=== PATIENT | male | born 1960 | race Caucasian/White ===

== ENCOUNTER → 2016-12-09 | Outpatient (CLI) | payer BC ==
[2016-12-09 13:40] LABS: ALT/SGPT 31 U/L (12-78); AST/SGOT 14 U/L (15-37); BLOOD UREA NITROGEN 22 mg/dl (7-18); BUN/CREATININE RATIO 20.2 (10-20); CALCIUM 8.6 mg/dl (8.5-10.1); CARBON DIOXIDE 29 mmol/L (21-32); CHLORIDE 104 mmol/L (98-107); GLUCOSE 121 mg/dl (70-99); POTASSIUM 4.3 mmol/L (3.5-5.1); SODIUM 140 mmol/L (136-145)
[2016-12-09 13:43] LABS: CHOLESTEROL 153 mg/dl (0-200); CHOLESTEROL/HDL RATIO 2.7; HDL CHOLESTEROL 57 mg/dl; LDL CHOLESTEROL CALCULATED 82 mg/dl; TRIGLYCERIDES 71 mg/dl (0-150); VERY LOW DENSITY LIPOPROT CALC 14 mg/dl
[2016-12-09 14:04] LABS: ESTIMATED AVERAGE GLUCOSE 143 mg/dl; HA1C FLAG Normal (Normal)
== END | disposition home or self-care (01) ==
LOC: C.LABMFLN 07:26
PROVIDERS: ATTEND Family Medicine
DX: E11.9 Type 2 diabetes mellitus without complications (principal); E78.00 Pure hypercholesterolemia, unspecified; E55.9 Vitamin D deficiency, unspecified; E83.51 Hypocalcemia

== ENCOUNTER → 2017-06-16 | Outpatient (CLI) | payer BC ==
[2017-06-16 13:50] LABS: ESTIMATED AVERAGE GLUCOSE 134 mg/dl; HA1C FLAG Normal (Normal)
[2017-06-16 14:24] LABS: RATIO 18.4 mcg/mg (0-30.0)
[2017-06-16 14:40] LABS: ALT/SGPT 32 U/L (12-78); AST/SGOT 23 U/L (15-37); BLOOD UREA NITROGEN 18 mg/dl (7-18); BUN/CREATININE RATIO 18.3 (10-20); CALCIUM 8.8 mg/dl (8.5-10.1); CARBON DIOXIDE 24 mmol/L (21-32); CHLORIDE 105 mmol/L (98-107); CHOLESTEROL 123 mg/dl (0-200); CREATININE 0.99 mg/dl (0.60-1.40); GLUCOSE 122 mg/dl (70-99); POTASSIUM 4.1 mmol/L (3.5-5.1); SODIUM 137 mmol/L (136-145); TRIGLYCERIDES 63 mg/dl (0-150); VERY LOW DENSITY LIPOPROT CALC 13 mg/dl
[2017-06-16 14:44] LABS: ALB/GLOB RATIO 1.2 (0.9-2); ALKALINE PHOSPHATASE 81 U/L (45-117); CHOLESTEROL/HDL RATIO 2.6; HDL CHOLESTEROL 47 mg/dl; LDL CHOLESTEROL CALCULATED 63 mg/dl
== END | disposition home or self-care (01) ==
LOC: C.LABMFLN 06:55
PROVIDERS: ATTEND Family Medicine
DX: E11.9 Type 2 diabetes mellitus without complications (principal); E78.00 Pure hypercholesterolemia, unspecified; Z12.5 Encounter for screening for malignant neoplasm of prostate; E55.9 Vitamin D deficiency, unspecified; E83.51 Hypocalcemia

== ENCOUNTER → 2017-07-15 | Outpatient (CLI) | payer BC ==
--- NOTE | 2017-07-15 10:39 | DIAGNOSTIC IMAGING REPORT ---
CT LUNG SCREENING, LOW DOSE WITH COMPUTER-AIDED DETECTION (CAD) CLINICAL HISTORY: Smoking history. Lung cancer screening. COMPARISON STUDY: No previous studies for comparison. CT DOSE: 86.01 mGy.cm TECHNIQUE: Low-dose helical CT was acquired without intravenous contrast from lung apices to bases and reconstructed at 2.5 mm every 2 mm. CAD was utilized for this study. A dose lowering technique was utilized adhering to the principles of ALARA. FINDINGS: Thyroid: Imaged portions of the thyroid gland are normal in appearance. Thoracic aorta: The thoracic aorta is normal in course and caliber, noting standard 3 vessel arch anatomy. Heart: The heart is mildly enlarged and without pericardial effusion. The pulmonary trunk is normal in caliber. Lungs and pleural spaces: Emphysematous changes observed. No airspace consolidation or pleural effusion is identified. The trachea and central airways are clear. Dependent atelectasis is observed. There is an indeterminant 10 mm right lower lobe nodule seen on image #153. A 6 mm left lower lobe pulmonary nodule is seen on image #161. A 3 mm left upper lobe nodule is seen on image #82. Mediastinum: There is no mediastinal lymphadenopathy. Kat: Not well assessed without IV contrast. Axilla: Clear. Upper abdomen: Partially visualized upper abdominal viscera is within normal limits. Skeletal structures: There are no lytic or blastic osseous lesions. IMPRESSION: 1. Cardiomegaly and emphysema. 2. No airspace consolidation or pleural effusion is identified. 3. There are 3 pathologically indeterminant pulmonary nodules identified. The largest measures 10 mm and is seen in the right lower lobe. Follow-up is recommended as detailed below. Nodule 1 Category: 4A Nodule 1 Status: Baseline Nodule 1 Description: Solid Nodule 1 Lesion ID: 2 Nodule 1 Slice Number: 149 Nodule 1 Volume (mm3): 426 Nodule 1 Major Sigurd mm: 15.3 Nodule 1 Minor Sigurd mm: 6.8 Nodule 2 Category: 2 Nodule 2 Status: Baseline Nodule 2 Description: Solid Nodule 2 Lesion ID: 1 Nodule 2 Slice Number: 141 Nodule 2 Volume (mm3): 58 Nodule 2 Major Sigurd mm: 6.4 Nodule 2 Minor Sigurd mm: 4.5 Nodule 3 Category: 2 Nodule 3 Status: Baseline Nodule 3 Description: Solid Nodule 3 Lesion ID: 3 Nodule 3 Slice Number: [id number] Nodule 3 Volume (mm3): 25 Nodule 3 Major Sigurd mm: 5.4 Nodule 3 Minor Sigurd mm: 4.1 CAD FINDINGS: Overall Lung RADS Category: 4A Lung RADS Management Recommendation: Return for CT high risk diagnostic chest. Lung RADS Follow Up Date: 2017-10-15 Lung RADS Nodule ID: [id number] Electronically signed by: Jerome Meade M.D. 07/15/2017 10:38 AM Dictated Date/Time: 07/15/2017 10:21 AM
== END | disposition home or self-care (01) ==
LOC: C.CTS 09:50
PROVIDERS: ATTEND Family Medicine
DX: Z87.891 Personal history of nicotine dependence (principal); I51.7 Cardiomegaly

== ENCOUNTER → 2017-08-17 | Outpatient (CLI) | payer BC ==
[~2017-08-17] MED LIST: ASPI81TA28 PO; ATOR-24 PO; CALC500C3 PO; GLC/500 PO; ULT50X PO; VTMD1000 PO
--- NOTE | 2017-08-17 08:12 | DIAGNOSTIC IMAGING REPORT ---
CT SCAN OF THE CHEST WITHOUT IV CONTRAST CLINICAL HISTORY: Pulmonary nodules. Preoperative examination. COMPARISON STUDY: Chest CT dated 07/15/2017. TECHNIQUE: CT scan of the thorax was performed from the thoracic inlet to the upper abdomen. Images are reviewed in the axial, sagittal, and coronal planes. IV contrast was not administered for this examination as per the referring clinician. A dose lowering technique was utilized adhering to the principles of ALARA. CT DOSE: 461.89 mGy.cm FINDINGS: Thyroid: Imaged portions of the thyroid gland are normal in size and attenuation. Thoracic aorta: The thoracic aorta is normal in caliber and demonstrates standard 3-vessel arch anatomy. Heart: The heart is top normal in size and without pericardial effusion. Lungs and pleural spaces: Mild emphysematous change is identified. No airspace consolidation or pleural effusion is seen. There are scattered indeterminant pulmonary nodules. The largest measures 10 mm as seen in the right lower lobe on image #167. 5 mm left lower lobe nodules are seen on images #165 and #277. A 4 mm left upper lobe nodule is seen on image #75. The trachea and central airways are clear. Mediastinum: There are scattered subcentimeter mediastinal lymph nodes. These are not pathologically enlarged by size criteria. Kat: Not well assessed without IV contrast. Axillae: There is no axillary lymphadenopathy. Upper abdomen: Partially visualized upper abdominal viscera is within normal limits. Skeletal structures: No lytic or blastic bony lesions are seen. IMPRESSION: 1. Mild emphysema. 2. There is no airspace consolidation or pleural effusion. 3. Scattered indeterminant pulmonary nodules are identified and measure up to 10 mm as detailed above. These have not significantly changed from 07/15/2017. Continued follow-up is recommended. Please refer to below summary of Fleischner criteria recommendations for follow-up of incidental CT nodules (Deidre Perez, Guidelines for management of small pulmonary nodules detected on CT scans: A statement from the Fleischner Society, Radiology 237: [phone].) SOLID NODULES Solitary nodule size: <6 mm * low risk patients: no follow-up needed * high risk patients: optional CT at 12 months Solitary nodule size: 6-8 mm * low risk patients: follow-up at 6-12 months, then consider further follow-up at 18-24 months * high risk patients: initial follow-up CT at 6-12 months and then at 18-24 months if no change Solitary nodule size: >8 mm * either low or high risk patients - consider follow-up CT at 3 months, and/or CT-PET, and/or biopsy Multiple nodules size: <6 mm * low risk patients: no routine follow-up * high risk patients: optional CT at 12 months Multiple nodules size: 6-8 mm * low risk patients: follow-up at 3-6 months, then consider further follow-up at 18-24 months * high risk patients: follow-up at 3-6 months, then at 18-24 months if no change Multiple nodules size: >8 mm * low risk patients: follow-up at 3-6 months, then consider further follow-up at 18-24 months * high risk patients: follow-up at 3-6 months, then at 18-24 months if no change Note: newly detected indeterminate nodule in persons 35 years of age or older. * low risk patients: minimal or absent history of smoking and/or other known risk factors * high risk patients: history of smoking or of other known risk factors (e.g. first degree relative with lung cancer, or exposure to asbestos, radon, uranium) * if a nodule up to 8 mm is partly solid or is ground glass further follow-up is required after 24 months to exclude possible slow growing adenocarcinoma (YUMIKO) SUBSOLID NODULES Solitary pure ground-glass nodule * nodule size <6 mm - no CT follow-up required * nodule size >=6 mm - follow-up CT at 6-12 months, then every 2 years until 5 years Solitary part-solid nodule * nodule size <6 mm - no CT follow-up required * nodule size >=6 mm - follow-up CT at 3-6 months. If unchanged, and solid component remains <6 mm, then annual follow-up for 5 years Multiple subsolid nodules * nodule size <6 mm - follow-up CT at 3-6 months, consider further follow-up at 2 and 4 years if stable * nodule size >=6 mm - follow-up CT at 3-6 months, subsequent management based on the most suspicious nodule(s) Electronically signed by: Jerome Meade M.D. 08/17/2017 8:10 AM Dictated Date/Time: 08/17/2017 8:01 AM
== END | disposition home or self-care (01) ==
LOC: C.CTS 06:44
PROVIDERS: ATTEND Surgery
DX: R91.8 Other nonspecific abnormal finding of lung field (principal)

== ENCOUNTER → 2017-08-26 | Outpatient (CLI) | payer BC ==
--- NOTE | 2017-08-26 12:45 | DIAGNOSTIC IMAGING REPORT ---
CHEST 2 VIEWS ROUTINE HISTORY: 56 years-old Male R91.8 Multiple lung nodules on [id number] follow-up study in a patient with lung nodules. COMPARISON: Chest radiograph 08/19/2017 TECHNIQUE: PA and lateral views of the chest FINDINGS: Cardiomediastinal and hilar silhouettes are within normal limits. No pneumothorax or large pleural effusion. There is decreased amount of consolidation within the right lower lobe. Bones of the chest are grossly intact. Subcutaneous emphysema of the right chest wall has resolved. IMPRESSION: 1. No pneumothorax. 2. Decreased yet persistent consolidation of the right lower lobe possibly related to atelectasis and/or scarring. The above report was generated using voice recognition software. It may contain grammatical, syntax or spelling errors. Electronically signed by: Dmitri Ramos M.D. 08/26/2017 12:44 PM Dictated Date/Time: 08/26/2017 12:43 PM
== END | disposition home or self-care (01) ==
LOC: C.RAD1850 12:32
PROVIDERS: ATTEND Surgery
DX: R91.8 Other nonspecific abnormal finding of lung field (principal)

== ENCOUNTER → 2017-12-17 | Outpatient (CLI) | payer BC ==
[2017-12-17 13:07] LABS: HEMOGLOBIN A1C 6.5 % (4.5-5.6)
[2017-12-17 13:37] LABS: ALBUMIN 3.6 gm/dl (3.4-5.0); ALKALINE PHOSPHATASE 87 U/L (45-117); AST/SGOT 21 U/L (15-37); BLOOD UREA NITROGEN 20 mg/dl (7-18); CALCIUM 8.5 mg/dl (8.5-10.1); CARBON DIOXIDE 24 mmol/L (21-32); CHOLESTEROL 123 mg/dl (0-200); CREATININE 1.11 mg/dl (0.60-1.40); GLUCOSE 130 mg/dl (70-99); POTASSIUM 4.2 mmol/L (3.5-5.1); SODIUM 136 mmol/L (136-145); TOTAL PROTEIN 6.6 gm/dl (6.4-8.2)
[2017-12-17 13:44] LABS: ALT/SGPT 32 U/L (12-78); LDL CHOLESTEROL CALCULATED 62 mg/dl
== END | disposition home or self-care (01) ==
LOC: C.LABMFLN 07:20
PROVIDERS: ATTEND Family Medicine
DX: E11.9 Type 2 diabetes mellitus without complications (principal); E78.00 Pure hypercholesterolemia, unspecified

== ENCOUNTER 2024-12-28 13:43 | Observation (INO) ==
--- NOTE | 2024-12-28 14:35 | Emergency Department Note ---
Impression & Plan Fever, Abdominal pain, Acute UTI ED Provider Note CHIEF COMPLAINT: UTI HISTORY OF PRESENTING ILLNESS: This 64-year-old male patient presents to the emergency department with his for evaluation of UTI symptoms. The patient states that he was diagnosed with a UTI on 12/26/24 by his PCP and started on Cipro and Azo. He was also started back on Flomax. The patient has been taking these medications as prescribed. However, he is now having fevers 103.8 F max with continued urinary frequency, lower abdominal pain, and pressure. He also has nausea, but no vomiting. He has been taking Tylenol with improvement of the symptoms, but then the symptoms return. Last dose of Tylenol was at 8 am this morning. Not eating well and having nausea. Had vomiting the first day, but none since. No previous history of UTI. Not really having abdominal pain or flank pain. Denies chest pain or SOB. Denies cough, sore throat, or other URI symptoms. He is not on any blood thinners. REVIEW OF SYSTEMS: See HPI for pertinent positives and pertinent negatives. ALLERGIES: Shellfish - only with large amounts MEDICATIONS: See below PAST MEDICAL HISTORY: See below PHYSICAL EXAM: VITALS: Vitals are noted on the nurse's note and reviewed by myself. GENERAL: The patient is mildly ill-appearing, but non toxic, in no acute distress, non-diaphoretic. SKIN: Capillary refill <2 sec. EYES: PERRLA. EOMI. Conjunctivae without injection, sclerae without icterus. EARS: External auditory canals clear, tympanic membranes pearly dias without erythema or effusion bilaterally. No tragus tenderness. NOSE: Patent without discharge. MOUTH: Mucous membranes moist. Uvula midline. Airway patent. Pharynx without erythema, edema, or exudate. NECK: Supple without nuchal rigidity. No lymphadenopathy. HEART: Regular rate and rhythm without murmurs gallops or rubs. LUNGS: Clear to auscultation bilaterally without wheezes, rales or rhonchi. No retractions or accessory muscle use. ABDOMEN: Positive bowel sounds x 4. Normal tympanic percussion. Soft, diffusely tender to palpation in the lower abdomen. No masses or hepatosplenomegaly. Sotomayor sign negative. No CVA tenderness. No guarding, rigidity, or rebound tenderness. No focal RLQ or LLQ tenderness. RECTAL EXAM: Permission to perform the exam. The patient declines a wax pumper for the exam. No external lesions noted. No external hemorrhoids. Normal sphincter tone. Internal hemorrhoids are not enlarged. The patient's prostate is tender to palpation and enlarged. No other obvious masses, tears, fistulas, fissures, abscess, or other lesion noted. MUSCULOSKELETAL: No gross musculoskeletal defects. NEURO: Patient was alert and oriented. No focal neurological deficits. DIFFERENTIAL DIAGNOSIS: Differential diagnosis includes hepatitis, pancreatitis, cholecystitis, cholelithiasis, appendicitis, kidney stone, pyelonephritis, UTI, gastritis, gastroenteritis, mesenteric adenitis, obstruction, constipation, hernia, abdominal abscess, perforation, diverticulitis, IBD, ischemic colitis, abdominal aortic aneurysm, testicular torsion, prostatitis, viral syndrome, RSV, Influenza, COVID, strep throat, pharyngitis/tonsillitis, mononucleosis, retropharyngeal abscess, peritonsillar abscess, otitis media, otitis externa, sinusitis, bronchitis, pneumonia, as well as other pathologies. ED COURSE AND MEDICAL DECISION MAKING: HISTORY FROM INDEPENDENT HISTORIAN: Additional history obtained from the patient's . MEDICATIONS GIVEN: 1 L normal saline solution bolus. Tylenol 1000 mg IV. The patient was given Benadryl 50 mg IV and Solu-Medrol 40 mg IV for pretreatment prior to the CT scan. Rocephin 2 g IV. MONITOR: Continuous hall monitor: Order was placed for continuous hall monitor. Patient was placed on the hall monitor and continuous pulse ox. Patient was noted to be in normal sinus rhythm at an initial rate of 94 bpm per my interpretation. EKG: EKG was interpreted by myself as 86 bpm with no acute ST or T wave changes. INTERPRETATION OF LABS: I interpreted the labs with full lab results as below in the lab section of this note. Laboratory results pertinent to the emergent complaint are discussed in the MDM section below. The patient was advised to follow up with their PCP and/or specialist(s) for further outpatient monitoring and management of any abnormal results. INTERPRETATION OF IMAGING: Imaging studies were interpreted by myself and read by radiology as per the imaging section of this note. The patient was advised to follow up with their PCP and/or specialist(s) for further outpatient management of any non-emergent abnormal findings. Chest x-ray negative for pneumonia or other acute cardiopulmonary etiology. CT scan of the abdomen pelvis with IV contrast shows mild cystitis, but no other acute abnormalities. EXTERNAL RECORDS REVIEWED: I reviewed the patient's PCP office visit from 12/26/2024 where he was diagnosed with a UTI and started on Cipro, Flomax, and Azo. His outpatient urine culture grew E. coli that was pansensitive. CONSULTATIONS: On-call hospitalist [facility] SUMMARY: The patient was seen during a time of extreme volume and extreme acuity. Nursing triage protocols were initiated with IV lock, labs, and/or imaging studies conducted by protocol in the triage area. The patient was initially evaluated in a triage room and then re-evaluated once they were taken back to an exam room. The patient was diagnosed with a UTI 2 days ago and started on Cipro, Azo, and restarted on his Flomax. His urine culture grew E. coli that was pansensitive. However, the patient then started with fevers of 103.8 F maximum, lower abdominal pain, continued urinary frequency, and development of nausea. The patient states that he overall just does not feel well. He denies any URI symptoms or cough. The patient was afebrile in the ER with a heart rate of 101 initially, but no additional episodes of tachycardia. On exam, the patient does appear mildly ill, but nontoxic. Diffuse lower abdominal pain, but no CVA tenderness. Rectal exam does reveal tenderness of the prostate and prostatitis is considered. The patient was given 1 L normal saline solution bolus and Tylenol 1000 mg IV with improvement of his symptoms. Additional IV fluids were held due to concern for fluid overload. The patient is unsure if he has ever had IV contrast before, but does have an allergy to larger amounts of shellfish. The patient would feel more comfortable being pretreated. He was given Benadryl 50 mg IV and Solu-Medrol 40 mg IV for pretreatment prior to the CT scan contrast. This improved his nausea. White blood cell count normal at 6.80. Hemoglobin normal at 14.8. Platelet count low at 104. Sodium low at 130, chloride 97, glucose 228, AST 114, ALT 96, and alk phos 127. CMP otherwise normal. Lipase normal. Lactate normal, but procalcitonin elevated at 1.83. High-sensitivity troponin was normal. Urinalysis with 21-50 white blood cells, 3-5 epithelial cells, and 1+ bacteria. Respiratory BioFire was negative. Urine culture and blood cultures are still pending. Chest x-ray negative for pneumonia or other acute cardiopulmonary etiology. CT scan of the abdomen pelvis with IV contrast shows mild cystitis, but no other acute abnormalities. The patient felt improved after the IV medications, but still does not feel well enough to be discharged home. Concern for possible early pyelonephritis or prostatitis. The patient was given Rocephin 2 g IV. I had a meaningful discussion about this patient with Dr. Moses who agrees with my assessment and the treatment plan. We feel the patient requires admission for further evaluation and treatment. I spoke with the on-call hospitalist who agreed to admit the patient for further management. Please refer to their dictation for further details. The patient's care was transferred in stable condition. DIAGNOSIS: Fever Abdominal pain UTI Concern for possible early pyelonephritis Concern for possible prostatitis Past Med/Surg History Problem List (Updated 12/28/24 @ 18:25 by Soni Vigil PA-C) Acute UTI (Acute) Abdominal pain (Acute) Fever (Acute) UTI (urinary tract infection) Nocturia Chronic sinusitis BPH associated with nocturia Adenoma of colon Elevated PSA Dyslipidemia Type 2 diabetes mellitus Vitamin D deficiency (Acute) History of tobacco use (Acute) History of lung biopsy Encounter for pre-operative examination Medical History (Updated 12/28/24 @ 18:25 by Soni Vigil PA-C) Lung mass Type 2 diabetes mellitus Hypercholesterolemia HX Multiple lung nodules on CT MONITORS ANNUALLY Surgical History History of cataract surgery History of colonoscopy History of carpal tunnel release H/O pneumonectomy Family History Father Myocardial infarction Hypertension Mother COPD (chronic obstructive pulmonary disease) Grandfather (Maternal) Diabetes Social History Smoking Status: Former smoker Tobacco Type: Cigarettes Age Started Using Tobacco: 19; Age Quit Using Tobacco: 61; packs per day: 0.5; Do You Dip or Chew Tobacco: No; Hx Alcohol Use: Yes (VERY RARE) Hx Substance Use: No Preferred Language: Swedish Communication Ability: Effective 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 Beliefs That Will Affect Care: None marital status: Current Living Situation: Spouse current occupational status: employed Feels Safe at Home: Yes Assistive Devices: Glasses Allergies Allergies Allergy/AdvReac Type Severity Reaction Status Date / Time shellfish derived Allergy Intermediate CHEST Verified 05/11/24 08:40 TIGHTNESS WITH LARGE AMOUNT CONSUMPTION Home Meds Home Medications Medication Instructions Recorded Confirmed omeprazole 20 mg capsule,delayed 20 mg PO DAILY PRN Acid Reflux 06/25/20 12/28/24 release Quercetin 2 tab PO DAILY 11/08/20 12/28/24 ascorbic acid (vitamin C) 500 mg 500 mg PO DAILY 11/08/20 12/28/24 tablet (Vitamin C) calcium carbonate 200 mg PO HS 11/08/20 12/28/24 selenium 200 mcg tablet 200 mcg PO DAILY 11/08/20 12/28/24 cholecalciferol (vitamin D3) 25 25 mcg PO DAILY 01/12/23 12/28/24 mcg (1,000 unit) capsule Previous Rx's Medication Instructions Recorded blood-glucose meter #1 ea 11/11/23 atorvastatin 40 mg tablet 40 mg PO QPM #90 tabs 09/07/24 semaglutide 7 mg tablet (Rybelsus) 7 mg PO DAILY #30 tabs 10/16/24 metformin 500 mg tablet 1,000 mg (2 x 500 mg) PO BID #360 12/11/24 tabs ciprofloxacin HCl 500 mg tablet 500 mg PO BID 10 days #20 tabs 12/26/24 tamsulosin 0.4 mg capsule 0.8 mg (2 x 0.4 mg) PO DAILY #60 12/26/24 caps Results & Data (ED) Vital Signs Vital Signs - 24 hr 12/28/24 13:46 12/28/24 15:23 12/28/24 15:30 Temperature 36.6 C Temperature Source Temporal Artery Scan Pulse Rate 101 H 87 84 Respiratory Rate 18 15 Respiratory Effort / Characteristics Non-Labored Spontaneous Respiratory Depth Normal Respiratory Pattern Regular Blood Pressure 114/72 137/75 Blood Pressure Mean 86 95 Pulse Oximetry 95 96 Oxygen Delivery Method Room Air Room Air Sepsis Recent Fever Within 48 Hours Yes Sepsis New/Unexplained Change in Mental Status N/A Sepsis Action Taken by Nursing No Action Required Laboratory Data 12/28/24 14:16 12/28/24 14:16 Lab Results 12/28/24 12/28/24 12/28/24 Range/Units 14:16 15:21 15:26 WBC 6.80 (4.8-10.8) K/ul RBC 4.64 L (4.70-6.10) M/uL Hgb 14.8 (14.0-18.0) g/dl Hct 42.2 (42.0-52.0) % MCV 90.9 (80.0-100.0) fL MCH 31.9 (25.0-34.0) pg MCHC 35.1 (32.0-36.0) g/dL RDW Std Deviation 39.9 (36.4-46.3) fL RDW Coeff of Alessandro 12.0 (11.5-14.5) % Plt Count 104 L (130-400) K/uL MPV 9.8 (9.4-12.4) fL Immature Gran % (Auto) 0.7 % Neut % (Auto) 82.1 % Lymph % (Auto) 9.6 % Adair % (Auto) 6.6 % Eos % (Auto) 0.7 % Baso % (Auto) 0.3 % Neut # (Auto) 5.58 (1.40-6.50) K/uL Lymph # (Auto) 0.65 L (1.20-3.40) K/uL Adair # (Auto) 0.45 (0.11-0.59) K/uL Eos # (Auto) 0.05 (0.00-0.50) K/uL Baso # (Auto) 0.02 (0.00-0.20) K/uL Immature Gran # (Auto) 0.05 (0.01-0.20) K/uL Sodium 130 L (136-145) mmol/L Potassium 3.9 (3.5-5.1) mmol/L Chloride 97 L (98-107) mmol/L Carbon Dioxide 24 (21-32) mmol/L Anion Gap 9 (3-11) BUN 19 (6-23) mg/dl Creatinine 1.27 (0.6-1.4) mg/dl Est Cr Clr Drug Dosing 64.2 ml/min eGFR 62.31 BUN/Creatinine Ratio 15.0 (10-20) Glucose 228 H (70-99(Fasting)) mg/dl Lactate 1.6 (0.4-2.0) mmol/L Calcium 8.6 (8.6-10.3) mg/dl Total Bilirubin 0.8 (0.2-1.0) mg/dl AST 114 H (13-39) U/L ALT 96 H (7-52) U/L Alkaline Phosphatase 127 H (34-104) U/L Troponin I High Sens 10.4 (0-20) pg/ml Total Protein 7.1 (6.0-8.3) gm/dl Albumin 4.0 (3.4-5.0) gm/dl Globulin 3.1 (2.5-4.0) gm/dl Albumin/Globulin Ratio 1.3 (0.9-2) Lipase 31 (11-82) U/L Procalcitonin 1.83 H (0-0.5) ng/ml Urine Color See Comment Urine Appearance Clear (Clear) Urine pH Not Reportable Ur Specific Darragh 1.021 (1.000-1.030) Urine Protein Not Reportable Urine Glucose (UA) Not Reportable Urine Ketones Not Reportable Urine Blood Not Reportable Urine Nitrite Not Reportable Urine Bilirubin Not Reportable Urine Urobilinogen Not Reportable Ur Leukocyte Esterase Not Reportable Urine RBC 0-2 (0-2) /hpf Urine WBC 21-50 H (0-5) /hpf Ur Epithelial Cells 3-5 H (0-2) /hpf Urine Bacteria 1+ H (None Seen) Adenovirus (PCR) Not Detected (NotDetected) B. pertussis DNA (PCR) Not Detected (NotDetected) B.parapertussis DNA PCR Not Detected (NotDetected) C. pneumoniae DNA (PCR) Not Detected (NotDetected) Coronavirus OC43 (PCR) Not Detected (NotDetected) Coronavirus HKU1 (PCR) Not Detected (NotDetected) Coronavirus 229E (PCR) Not Detected (NotDetected) SARS-CoV-2 (PCR) Not Detected (NotDetected) Coronavirus NL63 (PCR) Not Detected (NotDetected) Human Metapneumovir PCR Not Detected (NotDetected) Influenza Type A (PCR) Not Detected (NotDetected) Influenza Type B (PCR) Not Detected (NotDetected) M. pneumoniae (PCR) Not Detected (NotDetected) Parainfluenza 1 (PCR) Not Detected (NotDetected) Parainfluenza 2 (PCR) Not Detected (NotDetected) Parainfluenza 3 (PCR) Not Detected (NotDetected) Parainfluenza 4 (PCR) Not Detected (NotDetected) RSV (PCR) Not Detected (NotDetected) Entero/Rhino (PCR) Not Detected (NotDetected) Administered Medications Sodium Chloride (Nss) 1,000 mls @ 100 mls/hr IV .Q10H LINDA Stop: 12/29/24 18:59 Last Admin: 12/28/24 19:21 Dose: 100 mls/hr Documented By: JOHN Discontinued Medications Diphenhydramine HCl (Diphenhydramine 50 Mg/Ml Vial) 50 mg IV ONE ONE Stop: 12/28/24 14:47 Last Admin: 12/28/24 15:16 Dose: 50 mg Documented By: GUILLE Sodium Chloride (Nss) 1,000 mls @ 999 mls/hr IV .Q1H1M ONE Stop: 12/28/24 15:47 Last Infusion: 12/28/24 16:32 Dose: Infused Documented By: Admin: 12/28/24 15:22 Dose: 999 mls/hr Documented By: GUILLE Acetaminophen (Ofirmev) 1,000 mg in 100 mls @ 400 mls/hr IV NOW STA Stop: 12/28/24 15:01 Last Infusion: 12/28/24 15:44 Dose: Infused Documented By: Admin: 12/28/24 15:16 Dose: 400 mls/hr Documented By: ARS Ceftriaxone Sodium (Rocephin) 2,000 mg in 50 mls @ 100 mls/hr IV NOW STA Stop: 12/28/24 17:39 Last Infusion: 12/28/24 17:55 Dose: Infused Documented By: Admin: 12/28/24 17:25 Dose: 100 mls/hr Documented By: GUILLE Ioversol (Optiray 320 100ml) 93 ml IV ONCE ONE Stop: 12/28/24 16:06 Last Admin: 12/28/24 16:05 Dose: 93 ml Documented By: JARROD Methylprednisolone (Methylprednisolone 125 Mg/2 Ml Vial) 40 mg IV NOW ONE Stop: 12/28/24 14:47 Last Admin: 12/28/24 15:16 Dose: 40 mg Documented By: GUILLE Imaging Data Radiologist's Impression: Abdomen/Pelvis CT 12/28/24 14:46 EXAM: CT Abdomen and Pelvis With Intravenous Contrast INDICATION: Lower abdominal pain, fever and recent urinary tract infection. TECHNIQUE: Axial computed tomography images of the abdomen and pelvis with intravenous contrast. Sagittal and coronal reformatted images were created and reviewed. This CT exam was performed using one or more of the following dose reduction techniques: automated exposure control, adjustment of the mA and/or kV according to patient size, and/or use of iterative reconstruction technique. CONTRAST: 93 ml of Optiray 320 was administered intravenously. COMPARISON: No relevant prior studies available. FINDINGS: Limitations: None. Lung bases: No abnormality noted. Pleural space: No visualized pleural effusion or pneumothorax. Heart: No abnormality noted. Mediastinum: No abnormality noted. ABDOMEN: Liver: No abnormality noted. Gallbladder and bile ducts: No calcified stones or surrounding fluid. No ductal dilation. Pancreas: Homogeneous enhancement. No mass, inflammation or ductal dilation. Spleen: No significant abnormality noted. Adrenals: No significant abnormality noted. Kidneys and ureters: Simple left renal cyst/s. No simple cyst follow-up necessary. Right kidney appears normal. No renal stone, hydronephrosis or perinephric fluid. The right kidney appears normal. Stomach and bowel: No distension or mucosal thickening. No inflammation noted. PELVIS: Appendix: Well seen and appears normal. Bladder: Mildly inflamed urinary bladder is incompletely distended. No gas in the lumen or wall. No stones. Reproductive: No abnormalities noted. ABDOMEN and PELVIS: Intraperitoneal space: No free air. No significant fluid collection. Bones/joints: No acute changes. Soft tissues: There are small bilateral fat containing inguinal hernias. Vasculature: Atherosclerotic calcification of the aorta and branches. No aneurysm. Lymph nodes: No pathologically enlarged lymph nodes. IMPRESSION: Mild cystitis. Correlate with urinalysis. No significant abnormality of either kidney noted. ACT 112: N/A Electronically signed by Jayne Euceda 12-28-2024 4:25 PM Chest X-Ray 12/28/24 14:46 XR chest 1V portable CLINICAL HISTORY: Fever COMPARISON STUDY: 08/19/2017 FINDINGS: Heart size and pulmonary vasculature are normal. No effusion or consolidation. IMPRESSION: No pneumonia seen. ACT 112: Negative or not required by law. Electronically signed by: Christopher Novak M.D. 12/28/2024 3:18 PM Discharge Plan Visit Data Chief Complaint: Urinary Symptoms Stated Complaint: UTI ED Provider: Vero Moses ED Midlevel Provider: Soni Vigil Discharge Problem: Fever, Abdominal pain, Acute UTI Patient Disposition: Admitted As Inpatient Condition: Good Forms Stand Alone Forms: My [facility] Prescriptions Prescriptions: No Action atorvastatin 40 mg tablet 40 mg PO QPM Qty: 90 3RF Rybelsus 7 mg tablet 7 mg PO DAILY Qty: 30 11RF metformin 500 mg tablet 1,000 mg PO BID Qty: 360 3RF (DME) blood-glucose meter Kit See Rx Instructions .ROUTE .MEDSUPPLY Qty: 1 0RF Rx Instructions: as per Rx plan. Check once daily. E11.9 omeprazole 20 mg capsule,delayed release(DR/EC) 20 mg PO DAILY PRN (Reason: Acid Reflux) Rx Instructions: OTC/no fill history available unable to verify cholecalciferol (vitamin D3) 25 mcg (1,000 unit) capsule 25 mcg PO DAILY Rx Instructions: otc unable to verify ciprofloxacin HCl 500 mg tablet 500 mg PO BID 10 Days Qty: 20 0RF Rx Instructions: take with food tamsulosin 0.4 mg capsule 0.8 mg PO DAILY Qty: 60 3RF Rx Instructions: Take at bedtime for nighttime urinary frequency. selenium 200 mcg Tablet 200 mcg PO DAILY Rx Instructions: otc unable to verify Quercetin 2 tab PO DAILY Rx Instructions: otc unable to verify calcium carbonate 200 mg calcium (500 mg) tablet,chewable 200 mg PO HS Rx Instructions: otc unable to verify ascorbic acid (vitamin C) [Vitamin C] 500 mg Tablet 500 mg PO DAILY Rx Instructions: otc unable to verify Referrals Referrals: Jerome Hays MD [Primary Care Provider] - Discharge Problem: Fever Qualifiers: Fever type: unspecified Qualified Code(s): R50.9 - Fever, unspecified Abdominal pain Qualifiers: Abdominal location: generalized Qualified Code(s): R10.84 - Generalized abdominal pain
[2024-12-28 14:38] LABS: Appearance Urine Clear (Clear); Basophils # (auto) 0.02 K/uL (0.00-0.20); Basophils % (auto) 0.3 %; Eosinophils # (auto) 0.05 K/uL (0.00-0.50); Eosinophils % (auto) 0.7 %; Hematocrit (blood only) 42.2 % (42.0-52.0); Hemoglobin 14.8 g/dl (14.0-18.0); Immature Granulocytes # (auto) 0.05 K/uL (0.01-0.20); Immature Granulocytes % (auto) 0.7 %; Lymphocytes # (auto) 0.65 K/uL (1.20-3.40); Lymphocytes % (auto) 9.6 %; Mean Corpuscular Hemoglobin 31.9 pg (25.0-34.0); Mean Corpuscular Hgb Conc 35.1 g/dL (32.0-36.0); Mean Corpuscular Volume 90.9 fL (80.0-100.0); Mean Platelet Volume 9.8 fL (9.4-12.4); Monocytes # (auto) 0.45 K/uL (0.11-0.59); Monocytes % (auto) 6.6 %; Neutrophils # (auto) 5.58 K/uL (1.40-6.50); Neutrophils % (auto) 82.1 %; Platelet Count 104 K/uL (130-400); RDW Standard Deviation 39.9 fL (36.4-46.3); Red Blood Count 4.64 M/uL (4.70-6.10); Specific Gravity Urine 1.021 (1.000-1.030)
[2024-12-28 14:52] LABS: RBC Urine 0-2 /hpf (0-2)
[2024-12-28 14:53] LABS: Bacteria Urine 1+ (None Seen); WBC Urine 21-50 /hpf (0-5)
[2024-12-28] MEDS: diphenhydrAMINE 50 MG/ML VIAL IV ONE (15:16)
[2024-12-28] MEDS: ACETAMINOPHEN 1,000 MG/100 ML VIAL IV STA (15:16)
[2024-12-28] MEDS: methylPREDNISolone 125 MG/2 ML VIAL IV ONE (15:16)
--- NOTE | 2024-12-28 15:20 | XRay Report ---
XR chest 1V portable CLINICAL HISTORY: Fever COMPARISON STUDY: 08/19/2017 FINDINGS: Heart size and pulmonary vasculature are normal. No effusion or consolidation. IMPRESSION: No pneumonia seen. ACT 112: Negative or not required by law. Electronically signed by: Christopher Novak M.D. 12/28/2024 3:18 PM
[2024-12-28] MEDS: SODIUM CHLORIDE 0.9% 1,000 ML IV ONE (15:22)
[2024-12-28 15:34] LABS: Troponin I High Sensitivity 10.4 pg/ml (0-20)
[2024-12-28 15:37] LABS: Albumin Globulin Ratio 1.3 (0.9-2); Bilirubin,Total 0.8 mg/dl (0.2-1.0); Calcium 8.6 mg/dl (8.6-10.3); Creatinine Clr Calc Pharmacy 64.2 ml/min; Globulin 3.1 gm/dl (2.5-4.0); Potassium 3.9 mmol/L (3.5-5.1); Total Protein 7.1 gm/dl (6.0-8.3)
[2024-12-28] MEDS: OPTIRAY 320 100ml IV ONE (16:05)
[2024-12-28 16:17] LABS: Adenovirus PCR Not Detected (NotDetected); Bordetella parapertussis PCR Not Detected (NotDetected); Bordetella pertussis PCR Not Detected (NotDetected); Chlamydia pneumoniae PCR Not Detected (NotDetected); Coronavirus 229E PCR Not Detected (NotDetected); Coronavirus CoV-2 (COVID19)PCR Not Detected (NotDetected); Coronavirus HKU1 PCR Not Detected (NotDetected); Coronavirus NL63 PCR Not Detected (NotDetected); Coronavirus OC43PCR Not Detected (NotDetected); Human Metapneumovirus PCR Not Detected (NotDetected); Influenza A PCR Not Detected (NotDetected); Influenza B PCR Not Detected (NotDetected); Mycoplasma pneumoniae PCR Not Detected (NotDetected); Parainfluenza Virus 1 PCR Not Detected (NotDetected); Parainfluenza Virus 2 PCR Not Detected (NotDetected); Parainfluenza Virus 3 PCR Not Detected (NotDetected); Parainfluenza Virus 4 PCR Not Detected (NotDetected); Respiratory Syncytial VirusPCR Not Detected (NotDetected); Rhinovirus/Enterovirus PCR Not Detected (NotDetected)
--- NOTE | 2024-12-28 16:25 | CT Scan Report ---
EXAM: CT Abdomen and Pelvis With Intravenous Contrast INDICATION: Lower abdominal pain, fever and recent urinary tract infection. TECHNIQUE: Axial computed tomography images of the abdomen and pelvis with intravenous contrast. Sagittal and coronal reformatted images were created and reviewed. This CT exam was performed using one or more of the following dose reduction techniques: automated exposure control, adjustment of the mA and/or kV according to patient size, and/or use of iterative reconstruction technique. CONTRAST: 93 ml of Optiray 320 was administered intravenously. COMPARISON: No relevant prior studies available. FINDINGS: Limitations: None. Lung bases: No abnormality noted. Pleural space: No visualized pleural effusion or pneumothorax. Heart: No abnormality noted. Mediastinum: No abnormality noted. ABDOMEN: Liver: No abnormality noted. Gallbladder and bile ducts: No calcified stones or surrounding fluid. No ductal dilation. Pancreas: Homogeneous enhancement. No mass, inflammation or ductal dilation. Spleen: No significant abnormality noted. Adrenals: No significant abnormality noted. Kidneys and ureters: Simple left renal cyst/s. No simple cyst follow-up necessary. Right kidney appears normal. No renal stone, hydronephrosis or perinephric fluid. The right kidney appears normal. Stomach and bowel: No distension or mucosal thickening. No inflammation noted. PELVIS: Appendix: Well seen and appears normal. Bladder: Mildly inflamed urinary bladder is incompletely distended. No gas in the lumen or wall. No stones. Reproductive: No abnormalities noted. ABDOMEN and PELVIS: Intraperitoneal space: No free air. No significant fluid collection. Bones/joints: No acute changes. Soft tissues: There are small bilateral fat containing inguinal hernias. Vasculature: Atherosclerotic calcification of the aorta and branches. No aneurysm. Lymph nodes: No pathologically enlarged lymph nodes. IMPRESSION: Mild cystitis. Correlate with urinalysis. No significant abnormality of either kidney noted. ACT 112: N/A Electronically signed by Jayne Euceda 12-28-2024 4:25 PM
--- NOTE | 2024-12-28 17:15 | Emergency Department Note ---
ED Visit Note I was consulted by the Advanced Practice Provider. I personally made/approved the management plan and take responsibility for the patient management. This includes the aspects of: -History/Physical/ -MDM .
[2024-12-28] MEDS: cefTRIAXone SODIUM 2,000 MG/50 ML BAG IV STA (17:25)
--- NOTE | 2024-12-28 18:19 | History & Physical Report ---
Date of Service December 28, 2024 Assessment & Plan (1) E. coli UTI: (2) Acute prostatitis: (3) Sepsis: (4) Fever: (5) BPH associated with nocturia: (6) Type 2 diabetes mellitus: (7) Hypercholesterolemia: (8) Abnormal LFTs: (9) Thrombocytopenia: Plan 64yo male with history of T2DM, BPH, and hyperlipidemia presents for ongoing fever, fatigue, myalgias, dysuria, frequency, poor urinary stream, and poor appetite. Symptoms began evening of 12/25/24; dx with UTI on 12/26/24; has been on cipro since that time. Urine cx as outpatient grew pansensitive e.coli. Per the ER provider ROBINA revealed evidence of acute prostatitis. #probable sepsis 2nd to e.coli UTI & acute prostatitis - * e.coli was pansensitive on urine cx earlier this week * despite appropriate abx at home (cipro 500mg BID) he has continued with fevers, etc. * possible explanations for his clinical presentation - * bacteremia * other non-urinary tract infectious process (LFTs are elevated, low platelets, etc) - consider tick-borne infection, other viral processes * perhaps there is simply a lag in clinical improvement due to acute prostatitis component * ER started IV rocephin in soto of cipro; will cont rocephin * follow blood & urine cx's * IV fluids #acute prostatitis - * will need up to 4 weeks of Rx for this * cipro is excellent abx choice for prostatitis * can likely go back to cipro at discharge as long as no new pathogen is isolated in the urine/blood * cont flomax #fevers - * no evidence of pyelonephritis on CT * no evidence of pneumonia * resp BioFire negative * will check Lyme & anaplasmosis screens in am to be thorough * if platelets and/or LFTs worsen, and if fevers persist, consider checking EBV & CMV titers * follow repeat urine cx * follow blood cx's * rocephin for UTI/prostatitis #abnormal LFTs - * reactive to sepsis? * 2nd to cipro therapy? * other infectious process (viral, tick-borne)? * recheck LFTs am * recheck CBC am * check lyme/anaplasmosis screens in am #thrombocytopenia - * likely 2nd to sepsis * repeat CBC in am for stability #T2DM - * a1c 7.4% in fall 2023 * repeat a1c in am * BSGs ac/hs * he received IV steroids in ER - premedication for shellfish allergy? * this may cause hyperglycemia * hold metformin for now #BPH - * cont flomax * follows with [facility] * treat UTI/prostatitis #DVT proph - * if platelets are stable tomorrow then add heparin or lovenox #Hyperlipidemia - * due to abnormal LFTs hold statin for now pt's was updated throughout the admissions process History of Present Illness Chief Complaint: fever, UTI Primary Care Provider: Jerome Hays MD 64yo male with history of T2DM, BPH, and hyperlipidemia presents for ongoing fever, fatigue, myalgias, dysuria, frequency, poor urinary stream, and poor appetite. Patient was in his usual state of health until Wednesday pm of this week when he developed rigors. He subsequently developed fever to over 101 degrees on Wednesday along with various UTI symptoms including poor urinary stream, dysuria, frequency, etc. He visited his PCP on Wednesday and u/a was suggestive of UTI. He was sent home with cipro 500mg BID and urine cx was dispatched. Urine cx ultimately grew pansensitive e.coli. Patient was asked to restart his flomax in light of his LUTS; he had been on this in the past (up until 2023; follows with [facility]). Despite the cipro he continued to feel poorly on Wednesday and into today. He endorsed ongoing weakness, poor appetite (although he ate a little better today), and LUTS. Further, he had fever of 103.8 at home today despite taking the cipro. With the above symptoms and persistent fever he came to the ER for evaluation. Patient denies any recent travel or sick contacts. Denies URI symptoms. Denies obvious tick bites. The ER provider performed ROBINA and his prostate was quite tender highly suggestive of prostatitis. Allergies Allergy/AdvReac Type Severity Reaction Status Date / Time shellfish derived Allergy Intermediate CHEST Verified 05/11/24 08:40 TIGHTNESS WITH LARGE AMOUNT CONSUMPTION Home Medications Medication Instructions Recorded Confirmed Type omeprazole 20 mg capsule,delayed 20 mg PO DAILY PRN Acid Reflux 06/25/2012/28 History release Quercetin 2 tab PO DAILY 11/08/20 12/28/24 History ascorbic acid (vitamin C) 500 mg 500 mg PO DAILY 11/08/20 12/28/24 History tablet (Vitamin C) calcium carbonate 200 mg PO HS 11/08/20 12/28/24 History selenium 200 mcg tablet 200 mcg PO DAILY 11/08/20 12/28/24 History cholecalciferol (vitamin D3) 25 25 mcg PO DAILY 01/12/23 12/28/24 History mcg (1,000 unit) capsule blood-glucose meter #1 ea 11/11/23 12/26/24 Rx atorvastatin 40 mg tablet 40 mg PO QPM #90 tabs 09/07/24 12/28/24 Rx semaglutide 7 mg tablet (Rybelsus) 7 mg PO DAILY #30 tabs 10/16/24 12/28/24 Rx metformin 500 mg tablet 1,000 mg (2 x 500 mg) PO BID #360 12/11/24 12/28/24 Rx tabs ciprofloxacin HCl 500 mg tablet 500 mg PO BID 10 days #20 tabs 12/26/24 12/28/24 Rx tamsulosin 0.4 mg capsule 0.8 mg (2 x 0.4 mg) PO DAILY #60 12/26/24 12/28/24 Rx caps Past Med/Surg History Problem List (Updated 12/29/24 @ 00:20 by Satya Ramos MD) Sepsis Thrombocytopenia Abnormal LFTs Acute prostatitis E. coli UTI Acute UTI (Acute) Abdominal pain (Acute) Fever (Acute) UTI (urinary tract infection) Nocturia Chronic sinusitis Dyslipidemia Type 2 diabetes mellitus Encounter for pre-operative examination Medical History (Updated 12/29/24 @ 00:20 by Satya Ramos MD) BPH associated with nocturia Adenoma of colon Elevated PSA History of tobacco use Vitamin D deficiency Lung mass Type 2 diabetes mellitus Hypercholesterolemia HX Multiple lung nodules on CT MONITORS ANNUALLY Surgical History (Updated 12/28/24 @ 20:37 by Satya Ramos MD) History of lung biopsy History of cataract surgery LEFT History of colonoscopy History of carpal tunnel release RT/LEFT H/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 August 18, 2017, Dr Gaviria Family History (Updated 12/28/24 @ 20:37 by Satya Ramos MD) Father , in his late 50s Myocardial infarction Hypertension Mother COPD (chronic obstructive pulmonary disease) Grandfather (Maternal) Diabetes Social History (Updated 12/28/24 @ 20:38 by Satya Ramos MD) Smoking Status: Former smoker Tobacco Type: Cigarettes Age Started Using Tobacco: 19; Age Quit Using Tobacco: 61; packs per day: 0.5; Smoking End Date: 2 years ago; Second Hand Exposure: No; Do You Dip or Chew Tobacco: No; Hx Alcohol Use: No Hx Substance Use: No Preferred Language: [place] Communication Ability: Effective 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 Beliefs That Will Affect Care: None marital status: Current Living Situation: Spouse current occupational status: employed current occupation: [employer] How many Children do You have: 3 Other Information That Helps Us Care for You: No Feels Safe at Home: Yes Safety Concerns: Feels Safe At This Time Assistive Devices: Glasses Review of Systems Review of Systems: gen - fevers, chills, poor appetite, fatigue/weakness eyes - no recent change in vision HENT - no URI symptoms CV - no chest pain pulm - no cough or dyspnea GI - some nausea, had 1 episode of emesis this week; no abd pain or flank pain; no diarrhea - dysuria, frequency, nocturia, poor stream musculo - myalgias neuro - mild headache this week skin - no rash Physical Exam Physical Exam: gen - looks sick but nontoxic, awake, alert skin - no rash eyes - PERRL HENT - TMs clear b/l, nose clear, mouth - MM slightly dry neck - no JVD heart - RRR, s1 s2, no murmur lungs - CTA b/l, no rales or wheeze abd - soft NT ND BS+; no HSM; no flank tenderness ext - no edema, pulses 2+ b/l feet neuro - strength 5/5 x 4 exts Results & Data Results & Data Vital Signs (Past 12 Hours) Vital Signs Temp Pulse Resp BP Pulse Ox O2 Del Method 12/28/24 15:30 84 15 137/75 96 Room Air 12/28/24 15:23 87 12/28/24 13:46 36.6 C 101 H 18 114/72 95 Room Air Laboratory Results Laboratory Results - last 24 hr 12/28/24 12/28/24 12/28/24 14:16 15:21 15:26 WBC 6.80 RBC 4.64 L Hgb 14.8 Hct 42.2 MCV 90.9 MCH 31.9 MCHC 35.1 RDW Std Deviation 39.9 RDW Coeff of Alessandro 12.0 Plt Count 104 L MPV 9.8 Immature Gran % (Auto) 0.7 Neut % (Auto) 82.1 Lymph % (Auto) 9.6 Branch % (Auto) 6.6 Eos % (Auto) 0.7 Baso % (Auto) 0.3 Neut # (Auto) 5.58 Lymph # (Auto) 0.65 L Branch # (Auto) 0.45 Eos # (Auto) 0.05 Baso # (Auto) 0.02 Immature Gran # (Auto) 0.05 Sodium 130 L Potassium 3.9 Chloride 97 L Carbon Dioxide 24 Anion Gap 9 BUN 19 Creatinine 1.27 Est Cr Clr Drug Dosing 64.2 eGFR 62.31 BUN/Creatinine Ratio 15.0 Glucose 228 H Lactate 1.6 Calcium 8.6 Total Bilirubin 0.8 AST 114 H ALT 96 H Alkaline Phosphatase 127 H Troponin I High Sens 10.4 Total Protein 7.1 Albumin 4.0 Globulin 3.1 Albumin/Globulin Ratio 1.3 Lipase 31 Procalcitonin 1.83 H Urine Color See Comment Urine Appearance Clear Urine pH Not Reportable Ur Specific [place] 1.021 Urine Protein Not Reportable Urine Glucose (UA) Not Reportable Urine Ketones Not Reportable Urine Blood Not Reportable Urine Nitrite Not Reportable Urine Bilirubin Not Reportable Urine Urobilinogen Not Reportable Ur Leukocyte Esterase Not Reportable Urine RBC 0-2 Urine WBC 21-50 H Ur Epithelial Cells 3-5 H Urine Bacteria 1+ H Adenovirus (PCR) Not Detected B. pertussis DNA (PCR) Not Detected B.parapertussis DNA PCR Not Detected C. pneumoniae DNA (PCR) Not Detected Coronavirus OC43 (PCR) Not Detected Coronavirus HKU1 (PCR) Not Detected Coronavirus 229E (PCR) Not Detected SARS-CoV-2 (PCR) Not Detected Coronavirus NL63 (PCR) Not Detected Human Metapneumovir PCR Not Detected Influenza Type A (PCR) Not Detected Influenza Type B (PCR) Not Detected M. pneumoniae (PCR) Not Detected Parainfluenza 1 (PCR) Not Detected Parainfluenza 2 (PCR) Not Detected Parainfluenza 3 (PCR) Not Detected Parainfluenza 4 (PCR) Not Detected RSV (PCR) Not Detected Entero/Rhino (PCR) Not Detected Diagnostic Findings Abdomen/Pelvis CT 12/28/24 14:46 EXAM: CT Abdomen and Pelvis With Intravenous Contrast INDICATION: Lower abdominal pain, fever and recent urinary tract infection. TECHNIQUE: Axial computed tomography images of the abdomen and pelvis with intravenous contrast. Sagittal and coronal reformatted images were created and reviewed. This CT exam was performed using one or more of the following dose reduction techniques: automated exposure control, adjustment of the mA and/or kV according to patient size, and/or use of iterative reconstruction technique. CONTRAST: 93 ml of Optiray 320 was administered intravenously. COMPARISON: No relevant prior studies available. FINDINGS: Limitations: None. Lung bases: No abnormality noted. Pleural space: No visualized pleural effusion or pneumothorax. Heart: No abnormality noted. Mediastinum: No abnormality noted. ABDOMEN: Liver: No abnormality noted. Gallbladder and bile ducts: No calcified stones or surrounding fluid. No ductal dilation. Pancreas: Homogeneous enhancement. No mass, inflammation or ductal dilation. Spleen: No significant abnormality noted. Adrenals: No significant abnormality noted. Kidneys and ureters: Simple left renal cyst/s. No simple cyst follow-up necessary. Right kidney appears normal. No renal stone, hydronephrosis or perinephric fluid. The right kidney appears normal. Stomach and bowel: No distension or mucosal thickening. No inflammation noted. PELVIS: Appendix: Well seen and appears normal. Bladder: Mildly inflamed urinary bladder is incompletely distended. No gas in the lumen or wall. No stones. Reproductive: No abnormalities noted. ABDOMEN and PELVIS: Intraperitoneal space: No free air. No significant fluid collection. Bones/joints: No acute changes. Soft tissues: There are small bilateral fat containing inguinal hernias. Vasculature: Atherosclerotic calcification of the aorta and branches. No aneurysm. Lymph nodes: No pathologically enlarged lymph nodes. IMPRESSION: Mild cystitis. Correlate with urinalysis. No significant abnormality of either kidney noted. ACT 112: N/A Electronically signed by Jayne Euceda 12-28-2024 4:25 PM Chest X-Ray 12/28/24 14:46 XR chest 1V portable CLINICAL HISTORY: Fever COMPARISON STUDY: 08/19/2017 FINDINGS: Heart size and pulmonary vasculature are normal. No effusion or consolidation. IMPRESSION: No pneumonia seen. ACT 112: Negative or not required by law. Electronically signed by: Christopher Novak M.D. 12/28/2024 3:18 PM EKG - my reading - NSR, left axis deviation, inferior ST segments flat, Q's inferior leads Code Status & VTE Plan Code Status full PG Care Time/CCT Total # of Minutes Spent Total Time Spent with Patient: Total time spent is greater than 50% in coordination of care (as documented) at patient's floor/unit and/or counseling patient: Coding Level of Care Code 40995 INT INP/OBS CARE 2/55MIN Diagnoses E. 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
[2024-12-28] MEDS: SODIUM CHLORIDE 0.9% 1,000 ML IV SCH (19:21)
--- NOTE | 2024-12-28 20:27 | Electrocardiogram Report ---
Test Reason : Blood Pressure : */* mmHG Vent. Rate : 86 BPM Atrial Rate : 86 BPM P-R Int : 174 ms QRS Dur : 90 ms QT Int : 358 ms P-R-T Axes : 20 -43 -1 degrees QTcB Int : 428 ms Normal sinus rhythm Left axis deviation Possible Inferior infarct , age undetermined Possible Anterior infarct , age undetermined Abnormal ECG When compared with ECG of 17-Aug-2017 09:18, MD interval has decreased QRS axis Shifted left Borderline criteria for Anterior infarct are now Present Inferior infarct is now Present Confirmed by Lusi Jalloh ([id number]) on 12/28/2024 8:27:25 PM Referred By: Confirmed By: Luis Jalloh
[2024-12-28] MEDS ORDERED: IBUPROFEN 600 MG TAB PO PRN (21:40)
[2024-12-28] MEDS ORDERED: ACETAMINOPHEN 325 MG TAB PO PRN (21:40)
[2024-12-28] MEDS ORDERED: ONDANSETRON INJ 2 MG/ML 2 ML VIAL IV PRN (21:40)
[2024-12-28] MEDS ORDERED: DEXTROSE 50% 50 ML SYRINGE IV PRN (21:51)
[2024-12-28] MEDS ORDERED: GLUCOSE 40% GEL 15 GM TUBE PO PRN (21:51)
[2024-12-28] MEDS ORDERED: GLUCOSE 10 TAB/TUBE PO PRN (21:51)
[2024-12-28] MEDS ORDERED: GLUCAGON FOR INJ 1 MG VIAL SQ PRN (21:51)
[2024-12-28] MEDS ORDERED: CARBOHYDRATES FOR HYPOGLYCEMIA PO PRN (21:51)
[2024-12-28] MEDS: INSULIN ASPART PER UNIT CHARGE SC SCH (22:11)
[2024-12-28] MEDS: LANTUS PER UNIT CHARGE SQ SCH (22:11)
[2024-12-28] MEDS: CALCIUM CARBONATE 500 MG CHEWABLE TAB PO SCH (22:11)
[2024-12-29 06:49] LABS: Hematocrit (blood only) 36.7 % (42.0-52.0); Mean Corpuscular Hemoglobin 31.8 pg (25.0-34.0); Mean Corpuscular Hgb Conc 35.4 g/dL (32.0-36.0); Mean Corpuscular Volume 89.7 fL (80.0-100.0); Mean Platelet Volume 10.2 fL (9.4-12.4); Platelet Count 119 K/uL (130-400); RDW Coefficient of Variation 11.8 % (11.5-14.5); RDW Standard Deviation 38.7 fL (36.4-46.3); Red Blood Count 4.09 M/uL (4.70-6.10); White Blood Count 5.68 K/ul (4.8-10.8)
[2024-12-29 07:12] LABS: Albumin Globulin Ratio 1.2 (0.9-2); Albumin Level 3.3 gm/dl (3.4-5.0); Bilirubin,Total 0.4 mg/dl (0.2-1.0); Calcium 8.4 mg/dl (8.6-10.3); Creatinine Clr Calc Pharmacy 85.9 ml/min; Globulin 2.8 gm/dl (2.5-4.0); Potassium 4.1 mmol/L (3.5-5.1); Total Protein 6.1 gm/dl (6.0-8.3)
[2024-12-29 07:28] LABS: Basophils # (auto) 0.01 K/uL (0.00-0.20); Basophils % (auto) 0.2 %; Immature Granulocytes # (auto) 0.05 K/uL (0.01-0.20); Immature Granulocytes % (auto) 0.9 %; Lymphocytes # (auto) 0.68 K/uL (1.20-3.40); Monocytes # (auto) 0.43 K/uL (0.11-0.59); Monocytes % (auto) 7.6 %; Neutrophils # (auto) 4.51 K/uL (1.40-6.50); Neutrophils % (auto) 79.3 %
[2024-12-29 07:48] VITALS: RESP 15
[2024-12-29 08:52] LABS: Estimated Average Glucose 177 mg/dl; Hemoglobin A1C 7.8 % (4.5-5.6)
[2024-12-29] MEDS: TAMSULOSIN HCL 0.4 MG CAP PO SCH (09:12)
[2024-12-29] MEDS: CHOLECALCIFEROL 25 MCG (1000 UNITS) TAB PO SCH (09:12)
[2024-12-29 12:03] VITALS: BP 124/64; TEMP 98.1; O2SAT 96
[2024-12-29] MEDS ORDERED: Nursing to Pharmacy Communication SCH (12:45)
--- NOTE | 2024-12-29 13:08 | Discharge Summary ---
Discharge Summary Date of Service December 29, 2024 Principal Dx & Hospital Course #1 = Principal Diagnosis (1) E. coli UTI: (2) Acute prostatitis: (3) Sepsis: (4) Fever: (5) BPH associated with nocturia: (6) Type 2 diabetes mellitus: (7) Hypercholesterolemia: (8) Abnormal LFTs: (9) Thrombocytopenia: Plan #probable sepsis 2nd to e.coli UTI & acute prostatitis / BPH 64yo male with history of T2DM, BPH, and hyperlipidemia presents for ongoing fever, fatigue, myalgias, dysuria, frequency, poor urinary stream, and poor appetite. Symptoms began evening of 12/25/24; dx with UTI on 12/26/24; has been on cipro since that time ( 5 doses prior to arrival). Urine cx as outpatient grew pansensitive e.coli. Per the ER provider ROBNIA revealed evidence of acute prostatitis. Initial evaluation with negative respiratory biofire, CTAP with concerns of mild cystitis. Admitted and received IV ceftriaxone and IV fluids with, to which he responded very well. Repeat urine culture has less than 1000 colonies of growth, blood cultures are pending. Discharged home with 25 days of Ciprofloxacin twice daily to complete a 28-day course. Continue Flomax #Elevated LFTs - Lyme screen and anaplasmosis are negative. LFTs are downtrending. Suspect reactive to sepsis but could be related to cipro. Consider recheck within next 1-2 weeks with prolonged cipro course. #thrombocytopenia - likely 2nd to sepsis, plt improving 119 day of discharge #T2DM - home regimen: PO semaglutide and metformin. Hgb A1c 7.8. Defer to PCP for further diabetic regimen adjustments, discussed with patient elevated sugar = slower healing. Dispo: discharge to home today Notes For Next Care Provider Blood cultures are pending Consider repeat CMP in the next 1 to 2 weeks for elevated LFTs while on prolonged Cipro course Medication Changes From Visit 25 additional days of Cipro to treat for prostatitis Admission HPI Per Admitting Provider 64yo male with history of T2DM, BPH, and hyperlipidemia presents for ongoing fever, fatigue, myalgias, dysuria, frequency, poor urinary stream, and poor appetite. Patient was in his usual state of health until Wednesday pm of this week when he developed rigors. He subsequently developed fever to over 101 degrees on Wednesday along with various UTI symptoms including poor urinary stream, dysuria, frequency, etc. He visited his PCP on Wednesday and u/a was suggestive of UTI. He was sent home with cipro 500mg BID and urine cx was dispatched. Urine cx ultimately grew pansensitive e.coli. Patient was asked to restart his flomax in light of his LUTS; he had been on this in the past (up until 2023; follows with [facility] [place] [facility]). Despite the cipro he continued to feel poorly on Wednesday and into today. He endorsed ongoing weakness, poor appetite (although he ate a little better today), and LUTS. Further, he had fever of 103.8 at home today despite taking the cipro. With the above symptoms and persistent fever he came to the ER for evaluation. Patient denies any recent travel or sick contacts. Denies URI symptoms. Denies obvious tick bites. The ER provider performed ROBINA and his prostate was quite tender highly suggestive of prostatitis. Discharge Exam General: NAD, VS as above, lying in bed, appears well, present at bedside Resp: normal respiratory effort, lungs clear to auscultation CV: RRR, no murmur, Abd: normal bowel sounds, non tender, soft Extremities: Moves all extremities, no edema Neuro: A&O x3, Skin: intact, no lesions noted Discharge Plan Discharge Items Patient Disposition: Home - Self-Care Reason For Visit: UTI/PROSTATITIS, SEPSIS Discharge Diagnosis: prostatitis Condition on Discharge: Good Activity: Resume your previous activity Driving/Machine Use: No limitations Weightbearing: Full weightbearing Non-emergency contact: Primary Care Provider Call non-emergency contact if: you have any medication questions, your pain is not controlled and your temperature is above 101 Follow-up/Referrals: Jerome Hays MD [Primary Care Provider] - (follow up within one week ) Diet: Carb Consistent or DM2 Addtl Attending Provider Instructions: Mr. Roldan, You were hospitalized after having fevers, fatigue and urinary symptoms at home. This was found to be from prostatitis. You were treated with IV antibiotics and IV Fluids and have responded really well. You will be discharged on a prolonged course of antibiotics - ciprofloxacin for an additional 25 days for a total of 28 day course. First dose will be AM 4/12 While you were here, we noticed your blood sugars to be a bit high, and your A1c was elevated at 7.8. Be cautious of what you are eating and discuss with your PCP if you need to add an additional medication to your diabetic regimen. High sugars can delay healing from infections. No changes to your home medications, continue your flomax. You have blood cultures pending at the time of discharge, they take 5 days to get final results. If they turn positive you will be notified, you can also check in with your PCP or the [facility] portal. However, given your symptoms I do not expect they will be positive. Make an appointment with your primary care physician within one week of discharge. A copy of this summary will be sent to them. Every time you see your primary care physician, or any other doctor, bring your medication list, and a list of questions. CONTACT YOUR PRIMARY CARE PROVIDER if you experience any of the following: Shortness of breath or difficulty breathing Fevers or chills Feeling tired with normal activity or experiencing dizziness or fainting Difficulty following your treatment plan, or difficulty taking medications CALL 911 OR GO TO THE EMERGENCY DEPARTMENT if you experience any of the following: Severe abdominal pain or nausea/vomiting Severe chest pain, or chest pain that radiates (moves) to your jaw or arm Sudden, severe shortness of breath or difficulty breathing Thank you for allowing us to participate in your care. Kathrin Sevilla PA-C Pending Studies at Discharge: Yes (blood cultures ) Stand-Alone Forms: My [facility], Smoking Cessation Medications and DC Order Prescriptions: Continued atorvastatin 40 mg tablet 40 mg PO QPM Qty: 90 3RF Rybelsus 7 mg tablet 7 mg PO DAILY Qty: 30 11RF metformin 500 mg tablet 1,000 mg PO BID Qty: 360 3RF (DME) blood-glucose meter Kit See Rx Instructions .ROUTE .MEDSUPPLY Qty: 1 0RF Rx Instructions: as per Rx plan. Check once daily. E11.9 omeprazole 20 mg capsule,delayed release(DR/EC) 20 mg PO DAILY PRN (Reason: Acid Reflux) Rx Instructions: OTC/no fill history available unable to verify cholecalciferol (vitamin D3) 25 mcg (1,000 unit) capsule 25 mcg PO DAILY Rx Instructions: otc unable to verify tamsulosin 0.4 mg capsule 0.8 mg PO DAILY Qty: 60 3RF Rx Instructions: Take at bedtime for nighttime urinary frequency. selenium 200 mcg Tablet 200 mcg PO DAILY Rx Instructions: otc unable to verify Quercetin 2 tab PO DAILY Rx Instructions: otc unable to verify calcium carbonate 200 mg calcium (500 mg) tablet,chewable 200 mg PO HS Rx Instructions: otc unable to verify ascorbic acid (vitamin C) [Vitamin C] 500 mg Tablet 500 mg PO DAILY Rx Instructions: otc unable to verify ciprofloxacin HCl 500 mg tablet 500 mg PO BID 25 Days Qty: 50 0RF Rx Instructions: take with food Discharge Orders: Discharge Order (Routine); Ordered 12/29/24 Ordered By: Kathrin Alvarez/Other Patient Handouts: Managing Type 2 Diabetes, How to Check Your Blood Sugar, Diabetes: Meal Planning Admission Data Admit Date/Time: 12/28/24 19:07 Attending Provider: Satya Ramos Admit Provider: Satya Ramos Primary Care Provider: Jerome Hays Other Providers: Satya Ramos Hospital Stay Data Consultations 12/28/24 18:04 ED Decision to Admit Stat Diagnostic Imagining Performed Abdomen/Pelvis CT 12/28/24 14:46 EXAM: CT Abdomen and Pelvis With Intravenous Contrast INDICATION: Lower abdominal pain, fever and recent urinary tract infection. TECHNIQUE: Axial computed tomography images of the abdomen and pelvis with intravenous contrast. Sagittal and coronal reformatted images were created and reviewed. This CT exam was performed using one or more of the following dose reduction techniques: automated exposure control, adjustment of the mA and/or kV according to patient size, and/or use of iterative reconstruction technique. CONTRAST: 93 ml of Optiray 320 was administered intravenously. COMPARISON: No relevant prior studies available. FINDINGS: Limitations: None. Lung bases: No abnormality noted. Pleural space: No visualized pleural effusion or pneumothorax. Heart: No abnormality noted. Mediastinum: No abnormality noted. ABDOMEN: Liver: No abnormality noted. Gallbladder and bile ducts: No calcified stones or surrounding fluid. No ductal dilation. Pancreas: Homogeneous enhancement. No mass, inflammation or ductal dilation. Spleen: No significant abnormality noted. Adrenals: No significant abnormality noted. Kidneys and ureters: Simple left renal cyst/s. No simple cyst follow-up necessary. Right kidney appears normal. No renal stone, hydronephrosis or perinephric fluid. The right kidney appears normal. Stomach and bowel: No distension or mucosal thickening. No inflammation noted. PELVIS: Appendix: Well seen and appears normal. Bladder: Mildly inflamed urinary bladder is incompletely distended. No gas in the lumen or wall. No stones. Reproductive: No abnormalities noted. ABDOMEN and PELVIS: Intraperitoneal space: No free air. No significant fluid collection. Bones/joints: No acute changes. Soft tissues: There are small bilateral fat containing inguinal hernias. Vasculature: Atherosclerotic calcification of the aorta and branches. No aneurysm. Lymph nodes: No pathologically enlarged lymph nodes. IMPRESSION: Mild cystitis. Correlate with urinalysis. No significant abnormality of either kidney noted. ACT 112: N/A Electronically signed by Jayne Euceda 12-28-2024 4:25 PM Chest X-Ray 12/28/24 14:46 XR chest 1V portable CLINICAL HISTORY: Fever COMPARISON STUDY: 08/19/2017 FINDINGS: Heart size and pulmonary vasculature are normal. No effusion or consolidation. IMPRESSION: No pneumonia seen. ACT 112: Negative or not required by law. Electronically signed by: Christopher Novak M.D. 12/28/2024 3:18 PM Pending Results Patient Have Any Pending Studies at Discharge: Yes (blood cultures ) Discharge Instructions Given to Patient (Per Discharging Provider) Mr. Roldan, You were hospitalized after having fevers, fatigue and urinary symptoms at home. This was found to be from prostatitis. You were treated with IV antibiotics and IV Fluids and have responded really well. You will be discharged on a prolonged course of antibiotics - ciprofloxacin for an additional 25 days for a total of 28 day course. First dose will be AM 4/12 While you were here, we noticed your blood sugars to be a bit high, and your A1c was elevated at 7.8. Be cautious of what you are eating and discuss with your PCP if you need to add an additional medication to your diabetic regimen. High sugars can delay healing from infections. No changes to your home medications, continue your flomax. You have blood cultures pending at the time of discharge, they take 5 days to get final results. If they turn positive you will be notified, you can also check in with your PCP or the [facility] portal. However, given your symptoms I do not expect they will be positive. Make an appointment with your primary care physician within one week of discharge. A copy of this summary will be sent to them. Every time you see your primary care physician, or any other doctor, bring your medication list, and a list of questions. CONTACT YOUR PRIMARY CARE PROVIDER if you experience any of the following: Shortness of breath or difficulty breathing Fevers or chills Feeling tired with normal activity or experiencing dizziness or fainting Difficulty following your treatment plan, or difficulty taking medications CALL 911 OR GO TO THE EMERGENCY DEPARTMENT if you experience any of the following: Severe abdominal pain or nausea/vomiting Severe chest pain, or chest pain that radiates (moves) to your jaw or arm Sudden, severe shortness of breath or difficulty breathing Thank you for allowing us to participate in your care. Kathrin Sevilla PA-C Total Time Total Time Spent Total Time Spent (In Minutes): Time spent day of discharge 41 minutes including direct patient care, medication reconciliation, documentation, review of labs and images, and coordination of care. Coding Level of Care Code 66873 INP/OBS DISCH >30 MIN Diagnoses E. coli UTI N39.0; B96.20 Acute prostatitis N41.0 Sepsis A41.9 Fever R50.9 Fever type: unspecified BPH associated with nocturia N40.1; R35.1 Type 2 diabetes mellitus without complication, without long-term current use of insulin E11.9 Diabetes mellitus termination clerk insulin use: without skilled nursing use Diabetes mellitus complication status: without complication Hypercholesterolemia E78.00 Abnormal LFTs R79.89 Thrombocytopenia D69.6
[2024-12-29] MEDS: cefTRIAXone SODIUM 2,000 MG/50 ML BAG IV SCH (13:43)
[2024-12-29 14:06] VITALS: PULSE 64
[2024-12-29] MEDS ORDERED: cefTRIAXone SODIUM 2,000 MG/50 ML BAG IV SCH (17:00)
== END 2024-12-29 14:51 | disposition home or self-care (01) ==
LOC: ED 13:43 → 2N 13:43
DX: R50.9 Fever, unspecified; R79.89 Other specified abnormal findings of blood chemistry; A41.9 Sepsis, unspecified organism; E78.00 Pure hypercholesterolemia, unspecified; R35.1 Nocturia; N39.0 Urinary tract infection, site not specified; N41.0 Acute prostatitis; Z91.013 Allergy to seafood; B96.20 Unspecified Escherichia coli [E. coli] as the cause of diseases classified elsewhere; E11.9 Type 2 diabetes mellitus without complications; Z79.84 Long term (current) use of oral hypoglycemic drugs; Z87.891 Personal history of nicotine dependence; Z79.899 Other long term (current) drug therapy; D69.6 Thrombocytopenia, unspecified